=== PATIENT | female | born 1935 | race Caucasian/White ===

== ENCOUNTER 2024-04-02 20:19 | Emergency (ER) | payer MEDICARE, OTHER ==
[2024-04-02 20:43] LABS: BASOPHILS ABSOLUTE AUTO 0.1 x10^3/uL (0.0-0.2); BASOPHILS PERCENT AUTO 0.7 % (0.2-1.2); EOSINOPHILS ABSOLUTE AUTO 0.1 x10^3/uL (0.0-0.5); EOSINOPHILS PERCENT AUTO 0.8 % (0.0-4.0); HEMATOCRIT 39.9 % (33.0-47.0); HEMOGLOBIN 13.7 g/dL (12.0-16.0); IMMATURE GRAN ABSOLUTE AUTO 0.02 x10^3/uL (0.00-0.07); LYMPHOCYTES ABSOLUTE AUTO 1.4 x10^3/uL (1.0-4.8); LYMPHOCYTES PERCENT AUTO 15.6 % (25.0-50.0); MEAN CORPUSCULAR HEMOGLOBIN 30.1 pg (26.0-32.0); MEAN CORPUSCULAR HGB CONC 34.3 g/dL (32.0-36.0); MEAN CORPUSCULAR VOLUME 87.7 fL (78.0-93.0); MONOCYTES ABSOLUTE AUTO 0.6 x10^3/uL (0.0-0.8); NEUTROPHILS ABSOLUTE AUTO 6.8 x10^3/uL (1.8-7.7); NEUTROPHILS PERCENT AUTO 75.7 % (50.0-80.0); PLATELET COUNT,PLT 222 x10^3/uL (130-400); RED BLOOD CELL COUNT 4.55 x10^6/uL (4.00-5.50)
[2024-04-02] MEDS: Sodium Chloride 0.9% 1,000 ML IV ONE (20:51)
[2024-04-02 21:03] LABS: ALANINE AMINOTRANSFERASE,ALT 22 U/L (14-59); ALBUMIN 3.4 g/dL (3.4-5.0); ALKALINE PHOSPHATASE 51 U/L (46-116); ANION GAP 12.9 mmol/L (5-15); ASPARTATE AMNIOTRANSFERASE,AST 18 U/L (15-37); BILIRUBIN TOTAL 0.4 mg/dL (0.2-1.0); BLOOD UREA NITROGEN,BUN 15 mg/dL (7-18); CALCIUM 9.6 mg/dL (8.5-10.1); CARBON DIOXIDE,CO2 29 mmol/L (21-32); CHLORIDE,CL 97 mmol/L (98-107); CREATININE 0.8 mg/dL (0.55-1.02); ESTIMATED GFR 71 mL/min (>=60); GLUCOSE RANDOM 95 mg/dL (70-99); POTASSIUM,K 3.9 mmol/L (3.5-5.1); PROTEIN TOTAL,TP 6.5 g/dL (6.4-8.2); SODIUM,NA 135 mmol/L (136-145)
== END 2024-04-02 22:17 | disposition home or self-care (01) ==
LOC: VM.ED 20:19
DX: R55 Syncope and collapse (principal); E03.9 Hypothyroidism, unspecified; Z79.82 Long term (current) use of aspirin; Z79.899 Other long term (current) drug therapy; Z79.890 Hormone replacement therapy; Z90.710 Acquired absence of both cervix and uterus
CPT/HCPCS: 36415; 80053; 84484; 85025; 93005; 96360; 99284-25; J7030

== ENCOUNTER 2024-09-03 10:50 | Inpatient (IN) | payer MEDICARE, OTHER ==
[2024-09-03 11:25] LABS: BASOPHILS PERCENT AUTO 0.1 % (0.2-1.2); HEMATOCRIT 38.2 % (33.0-47.0); HEMOGLOBIN 12.9 g/dL (12.0-16.0); IMMATURE GRAN ABSOLUTE AUTO 0.06 x10^3/uL (0.00-0.07); LYMPHOCYTES ABSOLUTE AUTO 0.8 x10^3/uL (1.0-4.8); MEAN CORPUSCULAR HEMOGLOBIN 30.1 pg (26.0-32.0); MEAN CORPUSCULAR HGB CONC 33.8 g/dL (32.0-36.0); MEAN CORPUSCULAR VOLUME 89.3 fL (78.0-93.0); MONOCYTES PERCENT AUTO 5.9 % (2.0-11.0); NEUTROPHILS ABSOLUTE AUTO 14.5 x10^3/uL (1.8-7.7); NEUTROPHILS PERCENT AUTO 88.6 % (50.0-80.0); PLATELET COUNT,PLT 289 x10^3/uL (130-400); RED BLOOD CELL COUNT 4.28 x10^6/uL (4.00-5.50); WHITE BLOOD CELL COUNT,WBC 16.3 x10^3/uL (4.0-10.0)
[2024-09-03] MEDS: Lactated Ringers 1,000 ML IV ONE (11:40)
[2024-09-03 11:45] LABS: PROTHROMBIN TIME 9.9 SEC (8.9-11.5); PTT,PARTIAL THROMBOPLSTIN TIME 24.9 SEC (21.9-33.8)
[2024-09-03 11:50] LABS: LACTIC ACID 1.2 mmol/L (0.4-2.0)
[2024-09-03 12:04] LABS: ALANINE AMINOTRANSFERASE,ALT 30 U/L (14-59); ALBUMIN 3.4 g/dL (3.4-5.0); ALKALINE PHOSPHATASE 56 U/L (46-116); ANION GAP 12.5 mmol/L (5-15); ASPARTATE AMNIOTRANSFERASE,AST 26 U/L (15-37); BILIRUBIN TOTAL 1.1 mg/dL (0.2-1.0); BLOOD UREA NITROGEN,BUN 18 mg/dL (7-18); C-REACTIVE PROTEIN 1.21 mg/dL (<=0.50); CALCIUM 9.3 mg/dL (8.5-10.1); CARBON DIOXIDE,CO2 30 mmol/L (21-32); CHLORIDE,CL 98 mmol/L (98-107); CREATINE KINASE,CK 51 U/L (26-192); ESTIMATED GFR 55 mL/min (>=60); GLUCOSE RANDOM 129 mg/dL (70-99); MAGNESIUM 2.1 mg/dL (1.8-2.4); POTASSIUM,K 4.5 mmol/L (3.5-5.1); PROTEIN TOTAL,TP 6.8 g/dL (6.4-8.2); SODIUM,NA 136 mmol/L (136-145)
[2024-09-03 12:20] LABS: APPEARANCE,URINE CLOUDY (CLEAR); BILIRUBIN,URINE NEGATIVE (NEGATIVE); COLOR,URINE YELLOW (YELLOW); GLUCOSE,URINE NEGATIVE (NEGATIVE); KETONES,URINE 40 mg/dL (NEGATIVE); LEUKOCYTE ESTERASE,URINE NEGATIVE (NEGATIVE); NITRITE,URINE POSITIVE (NEGATIVE); OCCULT BLOOD,URINE NEGATIVE (NEGATIVE); PH,URINE 5.5 (5.0-8.0); PROTEIN,URINE NEGATIVE (NEGATIVE); UROBILINOGEN,URINE 0.2 EU/dL (0.2)
[2024-09-03 12:28] LABS: BACTERIA,URINE MANY /HPF (NOT SEEN); MUCUS,URINE OCCASIONAL /LPF (NOT SEEN); RBC,URINE NOT SEEN /HPF (NOT SEEN); SQUAMOUS EPITHELIAL CELLS,UR FEW /HPF (NOT SEEN); WBC,URINE 0-5 /HPF (NOT SEEN)
[2024-09-03] MEDS: cefTRIAXone 1 GM Vial IVPUSH ONE (12:46)
[2024-09-03] MEDS: Mirtazapine 15 MG Tab PO SCH (20:53)
[2024-09-03] MEDS: Calcium Carbonate/Vitamin D3 1250 MG-5 MCG Tab PO SCH (20:53)
[2024-09-03] MEDS: Levothyroxine 50 MCG Tab PO SCH (20:53)
[2024-09-03] MEDS: Gabapentin 100 MG Cap PO SCH (20:54)
[2024-09-03] MEDS: Donepezil 10 MG Tab PO SCH (20:54)
[2024-09-04 07:58] LABS: HEMOGLOBIN 12.6 g/dL (12.0-16.0); MEAN CORPUSCULAR HEMOGLOBIN 29.9 pg (26.0-32.0); MEAN CORPUSCULAR HGB CONC 33.2 g/dL (32.0-36.0); RED BLOOD CELL COUNT 4.22 x10^6/uL (4.00-5.50)
[2024-09-04 08:29] LABS: CALCIUM 8.3 mg/dL (8.5-10.1); CREATININE 0.7 mg/dL (0.55-1.02); EST CRCL DRUG DOSING (CG) 41.8 mL/min
[2024-09-04] MEDS: Sodium Chloride 0.9% 10 ML Syringe FLUSH PRN (09:32)
[2024-09-04] MEDS: cefTRIAXone 1 GM Vial IVPUSH SCH (09:32)
[2024-09-04] MEDS: Heparin Sodium 5,000 Units/ML Vial SUBCUT SCH (09:43)
[2024-09-04] MEDS: oxyCODONE 5 MG Tab PO PRN (15:09)
[2024-09-05 08:10] LABS: HEMATOCRIT 40.8 % (33.0-47.0); HEMOGLOBIN 13.7 g/dL (12.0-16.0); MEAN CORPUSCULAR HEMOGLOBIN 29.8 pg (26.0-32.0); MEAN CORPUSCULAR HGB CONC 33.6 g/dL (32.0-36.0); MEAN CORPUSCULAR VOLUME 88.9 fL (78.0-93.0); RED BLOOD CELL COUNT 4.59 x10^6/uL (4.00-5.50); WHITE BLOOD CELL COUNT,WBC 9.8 x10^3/uL (4.0-10.0)
[2024-09-05 08:30] LABS: CALCIUM 8.6 mg/dL (8.5-10.1); CREATININE 0.6 mg/dL (0.55-1.02); EST CRCL DRUG DOSING (CG) 46.4 mL/min; POTASSIUM,K 3.9 mmol/L (3.5-5.1)
[2024-09-05 08:33] LABS: ANION GAP 10.9 mmol/L (5-15)
[2024-09-05] MEDS: Acetaminophen 325 MG Tab PO PRN (09:44)
[2024-09-05] MEDS: oxyCODONE 5 MG Tab PO PRN (16:14)
[2024-09-06 07:06] LABS: HEMATOCRIT 43.4 % (33.0-47.0); HEMOGLOBIN 14.6 g/dL (12.0-16.0); MEAN CORPUSCULAR HEMOGLOBIN 29.9 pg (26.0-32.0); MEAN CORPUSCULAR HGB CONC 33.6 g/dL (32.0-36.0); MEAN CORPUSCULAR VOLUME 88.9 fL (78.0-93.0); RED BLOOD CELL COUNT 4.88 x10^6/uL (4.00-5.50); WHITE BLOOD CELL COUNT,WBC 7.8 x10^3/uL (4.0-10.0)
[2024-09-06 07:20] LABS: CREATININE 0.6 mg/dL (0.55-1.02); EST CRCL DRUG DOSING (CG) 46.4 mL/min; POTASSIUM,K 4.2 mmol/L (3.5-5.1)
[2024-09-06 07:21] LABS: ANION GAP 11.2 mmol/L (5-15)
[2024-09-06] MEDS: Nitrofurantoin Macrocrystal 50 MG Cap PO SCH (08:23)
[2024-09-06] MEDS ORDERED: Melatonin 3 MG Tab PO SCH (21:00)
== END 2024-09-06 19:00 | disposition swing bed (61) | DRG 535 ==
LOC: VM.ED 10:50 → VM.MS 14:14
PROVIDERS: ADMIT Family Medicine; ATTEND Family Medicine
DX: S32.512A Fracture of superior rim of left pubis, initial encounter for closed fracture (principal); N39.0 Urinary tract infection, site not specified; S32.402A Unspecified fracture of left acetabulum, initial encounter for closed fracture; N30.00 Acute cystitis without hematuria; Z79.890 Hormone replacement therapy; F03.918 Unspecified dementia, unspecified severity, with other behavioral disturbance; G25.81 Restless legs syndrome; E78.5 Hyperlipidemia, unspecified; E03.9 Hypothyroidism, unspecified; G47.00 Insomnia, unspecified; B96.20 Unspecified Escherichia coli [E. coli] as the cause of diseases classified elsewhere; Z79.82 Long term (current) use of aspirin; Z79.899 Other long term (current) drug therapy; Z90.710 Acquired absence of both cervix and uterus; W19.XXXA Unspecified fall, initial encounter
CPT/HCPCS: 36415; 71045; 72192; 80048; 80053; 81001; 82550; 83605; 83735; 85025; 85027; 85610; 85730; 86140; 87086; 87088; 87186; 93005; 93010; 96361; 96374; 97161-GP; 97165-GO; 99284; 99285-25; A9270-GY; C1758; J0696; J1644; J3490; J7120

== ENCOUNTER 2024-09-06 12:29 | Inpatient (IN) | payer MEDICARE, OTHER ==
[2024-09-06] MEDS ORDERED: Ondansetron 4 MG Tab.DIS PO PRN (21:02)
[2024-09-06] MEDS ORDERED: oxyCODONE 5 MG Tab PO PRN (21:02)
[2024-09-06] MEDS ORDERED: Sodium Chloride 0.9% 10 ML Syringe FLUSH PRN (21:08)
[2024-09-06] MEDS: Nitrofurantoin Macrocrystal 50 MG Cap PO SCH (21:35)
[2024-09-06] MEDS: Heparin Sodium 5,000 Units/ML Vial SUBCUT SCH (21:36)
[2024-09-06] MEDS: Calcium Carbonate/Vitamin D3 1250 MG-5 MCG Tab PO SCH (21:47)
[2024-09-06] MEDS: Gabapentin 100 MG Cap PO SCH (21:48)
[2024-09-06] MEDS: Melatonin 3 MG Tab PO SCH (21:48)
[2024-09-06] MEDS: Donepezil 10 MG Tab PO SCH (21:49)
[2024-09-06] MEDS: Levothyroxine 50 MCG Tab PO SCH (21:50)
[2024-09-06] MEDS: Mirtazapine 15 MG Tab PO SCH (22:07)
[2024-09-08] MEDS: oxyCODONE 5 MG Tab PO PRN (01:03)
[2024-09-09 07:08] LABS: HEMATOCRIT 42.9 % (33.0-47.0); HEMOGLOBIN 14.2 g/dL (12.0-16.0); MEAN CORPUSCULAR HEMOGLOBIN 29.9 pg (26.0-32.0); MEAN CORPUSCULAR HGB CONC 33.1 g/dL (32.0-36.0); MEAN CORPUSCULAR VOLUME 90.3 fL (78.0-93.0); RED BLOOD CELL COUNT 4.75 x10^6/uL (4.00-5.50); WHITE BLOOD CELL COUNT,WBC 9.1 x10^3/uL (4.0-10.0)
[2024-09-09] MEDS: Docusate Sodium 100 MG Cap PO SCH (12:47)
[2024-09-09] MEDS: Ibuprofen 200 MG Tab PO PRN (15:55)
[2024-09-09] MEDS: tiZANidine 4 MG Tab PO SCH (19:52)
[2024-09-11] MEDS: Acetaminophen 325 MG Tab PO PRN (08:55)
[2024-09-12] MEDS: Glycerin 5.4 GM/7.5 ML Suppository RECTAL PRN (16:22)
[2024-09-12] MEDS: Polyethylene Glycol 3350 Powder 17 GM Packet PO PRN (20:30)
[2024-09-13] MEDS: oxyCODONE 5 MG Tab PO PRN (09:37)
[2024-09-24] MEDS: Heparin Sodium 5,000 Units/ML Vial SUBCUT SCH (20:15)
[2024-09-30] MEDS ORDERED: NAPHAZOLINE EYEBOTH PRN (20:45)
[2024-09-30] MEDS ORDERED: PHENIRAMINE EYEBOTH PRN (20:45)
[2024-09-30] MEDS: Latanoprost 0.005% Ophth Soln 2.5 ML Bottle EYEBOTH SCH (21:23)
[2024-10-02] MEDS: Menthol Lozenge MUCMEM PRN (20:25)
[2024-10-03] MEDS ORDERED: Ketotifen 0.025% Ophth Soln 5 ML Bottle EYEBOTH PRN (08:39)
[2024-10-07] MEDS: Gabapentin 100 MG Cap (OWN SUPPLY) PO SCH (21:27)
[2024-10-07] MEDS: Donepezil 10 MG Tab (OWN SUPPLY) PO SCH (21:28)
[2024-10-07] MEDS: MIRTAZAPINE 7.5 MG PO SCH (21:29)
[2024-10-07] MEDS: Levothyroxine 50 MCG Tab (OWN SUPPLY) PO SCH (21:29)
[2024-10-07] MEDS: Latanoprost 0.005% Ophth Soln (own supply) EYEBOTH SCH (21:30)
[2024-10-08 13:11] LABS: QNTIFERON MITOGEN MIN NIL 9.95 IU/mL; QNTIFERON NIL 0.05 IU/mL; QNTIFERON TB GOLD PLUS Negative (Negative)
== END 2024-10-11 10:30 | DRG 560 ==
LOC: VM.MS 19:00
PROVIDERS: ADMIT Family Medicine; ATTEND Family Medicine
DX: S32.592D Other specified fracture of left pubis, subsequent encounter for fracture with routine healing (principal); F03.918 Unspecified dementia, unspecified severity, with other behavioral disturbance; S32.402D Unspecified fracture of left acetabulum, subsequent encounter for fracture with routine healing; E03.9 Hypothyroidism, unspecified; G47.00 Insomnia, unspecified; G25.81 Restless legs syndrome; Z79.82 Long term (current) use of aspirin; Z79.899 Other long term (current) drug therapy; Z90.710 Acquired absence of both cervix and uterus; X58.XXXD Exposure to other specified factors, subsequent encounter
CPT/HCPCS: 36415; 85027; 86480; 97110-GP; 97116-GP; 97530-GO; 97530-GP; 97535-GO; A9270-GY; J1644; Q3014